=== PATIENT | male | born 1985 | race Caucasian/White ===

== ENCOUNTER 2017-08-12 00:37 | Emergency (ER) | payer SELFPAY ==
[~2017-08-12] VITALS: Ht 180.3 cm; Wt 100.0 kg
[2017-08-12 00:42] VITALS: BP 147/97
[2017-08-12 02:19] VITALS: PULSE 82; TEMP 97.8
== END 2017-08-12 02:17 | disposition home or self-care (01) ==
LOC: COL.ER 00:37
DX: F10.129 Alcohol abuse with intoxication, unspecified (principal); Y90.6 Blood alcohol level of 120-199 mg/100 ml